=== PATIENT | female | born 1995 | race Two or more races ===

== ENCOUNTER 2021-03-29 10:43 | Emergency (ER) | payer OTHER ==
[2021-03-30 05:07] LABS: SARS-CoV-2 NAA Not Detected (Not Detected)
== END 2021-03-29 13:59 | disposition home or self-care (01) ==
LOC: JVIRT 10:43
DX: Z20.822 Contact with and (suspected) exposure to COVID-19 (principal)
CPT/HCPCS: C9803; G2251-GT; Q3014-GT; U0003; U0005

== ENCOUNTER 2021-08-22 04:47 | Day surgery (SDC) | payer OTHER ==
[2021-08-18 16:05] VITALS: BMI 26.2
[2021-08-22] MEDS ORDERED: MIDAZOLAM HCL 2 MG/2 ML SINGLE DOSE VIAL ONE (19:15)
[2021-08-22 20:22] VITALS: BP 120/70; PULSE 72; TEMP 98
== END 2021-08-22 20:25 | disposition home or self-care (01) ==
LOC: JASU-SURG 04:47
PROVIDERS: ATTEND Urology
PROC: 0TF4XZZ Fragmentation in Left Kidney Pelvis, External Approach (ICD-10-PCS; principal; 2021-08-22 17:00)
DX: N20.0 Calculus of kidney (principal)
CPT/HCPCS: 81025

== ENCOUNTER 2022-01-25 05:28 | Day surgery (SDC) | payer OTHER ==
[2022-01-20 13:06] VITALS: BMI 25.5
[2022-01-25] MEDS ORDERED: MIDAZOLAM HCL 2 MG/2 ML SINGLE DOSE VIAL ONE ×2 (14:38→15:03)
[2022-01-25] MEDS ORDERED: KETOROLAC TROMETHAMINE 30 MG/1 ML VIAL ONE (14:38)
[2022-01-25 16:44] VITALS: BP 111/66; PULSE 64; TEMP 98.3
== END 2022-01-25 16:44 | disposition home or self-care (01) ==
LOC: JASU-SURG 05:28
PROVIDERS: ATTEND Urology
PROC: 0TF4XZZ Fragmentation in Left Kidney Pelvis, External Approach (ICD-10-PCS; principal; 2022-01-25 14:00)
DX: N20.0 Calculus of kidney (principal)
CPT/HCPCS: 81025

== ENCOUNTER 2023-11-26 10:28 | Emergency (ER) | payer BC ==
[2023-11-26 10:46] VITALS: BP 103/68; PULSE 76; RESP 18; TEMP 98.5; BMI 26.5
[2023-11-26] MEDS ORDERED: KETOROLAC TROMETHAMINE 15 MG/ML VIAL IM ONE (11:05)
[2023-11-26] MEDS ORDERED: KETOROLAC TROMETHAMINE 15 MG/ML VIAL ONE (11:19)
[2023-11-26 11:46] LABS: BASO % 2.9 % (0-2.0); EOS % 1.6 % (0-4.5); HEMATOCRIT 42.6 % (32.4-45.2); LYMPH % 46.5 % (8-40); MCH 28.6 pg (25.7-33.7); MCHC 32.9 g/dl (32.0-36.0); MEAN CELL VOLUME 86.9 fl (80-96); MONO % 6.1 % (3.8-10.2); NEUT % 42.9 % (42.8-82.8); PLATELET COUNT 297 10^3/uL (134-434); RDW 13.5 % (11.6-15.6); WHITE BLOOD COUNT 5.2 K/mm3 (4.0-10.0)
[2023-11-26 11:51] LABS: URINE APPEARANCE CLOUDY; URINE BILIRUBIN NEGATIVE (NEGATIVE); URINE COLOR YELLOW; URINE GLUCOSE (UA) NEGATIVE (NEGATIVE); URINE KETONE NEGATIVE (NEGATIVE); URINE LEUK ESTERASE TRACE (NEGATIVE); URINE NITRITE NEGATIVE (NEGATIVE); URINE PROTEIN NEGATIVE (NEGATIVE); URINE UROBILINOGEN 0.2 mg/dL (0.2-1.0)
[2023-11-26 11:52] LABS: HCG,QUALITATIVE URINE Negative
[2023-11-26 11:57] LABS: EPI CELLS 36.3 /uL (0-25.1); HYALINE CASTS 0.88 /uL (0-3.1); URINE BACTERIA 6260.1 /uL (0-1359); URINE RBC 15.8 /uL (0-23.9); URINE WBC 44.7 /uL (0-25.8)
[2023-11-26 12:04] LABS: CHLORIDE 107 mmol/L (98-107); POTASSIUM 4.1 mmol/L (3.5-5.1); SODIUM 140 mmol/L (136-145)
[2023-11-26 12:06] LABS: ANION GAP 5 mmol/L (4-13); CALCIUM 9.2 mg/dL (8.5-10.1); CO2 28 mmol/L (21-32); GLUCOSE,RANDOM 82 mg/dL (74-106)
[2023-11-26 12:07] LABS: ALBUMIN 4.2 g/dl (3.4-5.0); BLOOD UREA NITROGEN 10.1 mg/dL (7-18)
[2023-11-26 12:09] LABS: CREATININE 0.9 mg/dL (0.55-1.3); SGOT/AST 9 U/L (15-37); SGPT/ALT 11 U/L (13-61)
[2023-11-26 12:10] LABS: TOT PROT 7.3 g/dl (6.4-8.2)
[2023-11-26 12:11] LABS: BILIRUBIN,TOTAL 0.7 mg/dL (0.2-1)
[2023-11-26 12:12] LABS: ALK PHOS 55 U/L (45-117)
== END 2023-11-26 14:43 | disposition home or self-care (01) ==
LOC: JER 10:28
PROC: 3E0233Z Introduction of Anti-inflammatory into Muscle, Percutaneous Approach (ICD-10-PCS; principal; 2023-11-26)
DX: R10.31 Right lower quadrant pain (principal); R10.32 Left lower quadrant pain; N83.209 Unspecified ovarian cyst, unspecified side; M54.50 Low back pain, unspecified
CPT/HCPCS: 36415; 76775-TC; 76830-TC; 76856-TC; 80053; 81003; 83690; 84703; 85025; 86140; 87086; 99284-25